=== PATIENT | male | born 1975 | race Caucasian/White ===

== ENCOUNTER 2023-12-25 10:07 | Emergency (ER) | payer SELFPAY ==
[~2023-12-25] VITALS: Ht 188 cm; Wt 90.2 kg
[2023-12-25 10:40] VITALS: BP 136/86; PULSE 83; RESP 16; TEMP 97.8; O2SAT 98
== END 2023-12-25 12:28 | disposition home or self-care (01) ==
LOC: ER 10:08
DX: S63.501A Unspecified sprain of right wrist, initial encounter (principal); M25.531 Pain in right wrist; Z98.890 Other specified postprocedural states; X50.0XXA Overexertion from strenuous movement or load, initial encounter; Y93.89 Activity, other specified; Y92.89 Other specified places as the place of occurrence of the external cause; Y99.8 Other external cause status
CPT/HCPCS: 29125; 73110; 99283